=== PATIENT | male | born 1990 | race Caucasian/White ===

== ENCOUNTER 2018-11-13 18:36 | Observation (INO) ==
[2018-11-13] MEDS ORDERED: Isovue-370 500 ML BOTTLE IVP ONE (18:54)
--- NOTE | 2018-11-13 18:59 | Emergency Department Note ---
Disposition Clinical Impression: Acute electrocardiogram changes DVT (deep venous thrombosis) Qualifiers: DVT location: upper extremity Affected thrombotic vein of extremity: brachial Chronicity: acute Laterality: right Qualified Code(s): I82.621 - Acute embolism and thrombosis of deep veins of right upper extremity Chest pain Qualifiers: Chest pain type: unspecified Qualified Code(s): R07.9 - Chest pain, unspecified Disposition: Admitted As Inpatient Condition: Good Time of Disposition: 21:13 SOB HPI - General Chief Complaint: ED Shortness of Breath/Dyspnea Stated Complaint: CHECO,Left lung pain Time Seen by Provider: 11/13/18 18:46 Source: patient Mode of arrival: ambulatory Limitations: no limitations Nursing Notes Reviewed: Yes Vital Signs Reviewed: Yes - History of Present Illness Patient who is currently undergoing transitioning of gender who was on estrogen recently diagnosed with DVT of the right brachial vein arrives to the ED complaining of pleuritic chest pain that started roughly 2 hours ago. Left sided and sharp. States she could not afford his Xarelto so they did not start it. - Related Data Home Medications Medication Instructions Recorded Confirmed No Known Home Drugs 11/14/18 11/14/18 Allergies Allergy/AdvReac Type Severity Reaction Status Date / Time No Known Allergies Allergy Verified 11/10/18 10:45 All systems ED: reviewed and negative except as stated. Constitutional: Denies: fever, chills, weakness Eyes: Denies: vision change ENT ED: Denies: dysphagia Cardiovascular: Reports: chest pain, dyspnea on exertion. Denies: orthopnea, edema, syncope Respiratory: Reports: dyspnea. Denies: cough, sputum production Gastrointestinal: Denies: abdominal pain, nausea, vomiting Genitourinary: Denies: urgency, dysuria Musculoskeletal: Denies: back pain Integumentary: Denies: rash Neurological: Denies: headache Past Medical History - Past Medical History Attestation: Yes The following information was validated with the patient. Source: patient, old records reviewed Medical history: Reports: DVT, other Psychiatric history: Reports: no psych history - Social History Smoking Status: Never smoker Smokeless Tobacco Status: No Alcohol use: Reports: none Drug use: Reports: none Physical Exam - General Limitations: no limitations General appearance: alert, in no apparent distress - Head Head exam: atraumatic, normocephalic, normal inspection - Eye Eye exam: Present: normal appearance, PERRL, EOMI - ENT ENT exam: normal exam, normal oropharynx, mucous membranes moist - Neck Neck exam: Present: normal inspection, full ROM, trachea midline - Chest Chest inspection: Present: normal inspection, symmetric chest wall rise - Respiratory Respiratory exam: Present: normal lung sounds bilaterally - Cardiovascular Cardiovascular exam: Present: normal rhythm, tachycardia - Abdominal Exam Abdominal exam: Present: soft, Non-Tender. Absent: tenderness, distention, guarding, rebound, rigidity - Extremities Exam Extremities exam: Present: normal inspection, full ROM, normal capillary refill. Absent: tenderness, pedal edema - Neurological Exam Neurological exam: Present: alert, oriented X3 - Skin Skin exam: Present: warm, dry, intact, normal color Course - Reevaluation(s) Reevaluation #1: Patient's CTA of his chest demonstrates no signs of pulmonary embolus. A troponin was obtained and a BNP was also obtained. The patient was given 1 mg/kg dose of Lovenox. The patient will still likely be admitted to the hospital with concern for transition to warfarin as the patient cannot afford any other medication. Time: 20:45 Reevaluation #2: Troponin and BNP are negative. Patient does have a DVT and could not afford other anticoagulation. Patient will need to be anticoagulated. Patient will be admitted for anticoagulation purposes as well as further investigation of chest pain and EKG changes. Vital Signs Temperature 97.4 F L 11/13/18 18:42 Pulse Rate 113 11/13/18 18:42 Respiratory Rate 18 11/13/18 18:42 Blood Pressure 154/118 11/13/18 18:42 O2 Sat by Pulse Oximetry 100 11/13/18 18:42 Temperature 98.7 F 11/14/18 20:06 Pulse Rate 90 11/14/18 20:06 Respiratory Rate 18 11/14/18 20:06 Blood Pressure 136/78 11/14/18 20:06 O2 Sat by Pulse Oximetry 98 11/14/18 20:06 Oxygen Delivery Oxygen Delivery Room Air Shortness of Breath/Dyspnea - Medical Records Medical records reviewed: Yes I reviewed the patient's medical records. - Lab Data Lab results reviewed: Yes I reviewed the patient's lab results. Result diagrams: 11/14/18 06:09 11/14/18 06:09 Lab Results 11/13/18 11/13/18 11/13/18 Range/Units 18:53 18:53 18:54 WBC 8.8 (4.3-11.1) K/mcL RBC 4.89 (4.19-5.50) M/mcL Hgb 14.7 (12.9-16.9) g/dL Hct 40.9 (37.5-50.1) % MCV 83.6 (83.0-100.0) fL MCH 30.1 (28.0-33.3) pg MCHC 35.9 H (31.6-35.5) g/dL RDW 12.5 (11.5-14.5) % Plt Count 297 (140-400) K/mcL MPV 10.7 (9.4-12.4) fL Immature Gran % 0.3 (0-4) % Seg Neutrophils % 62.0 % Lymphocytes % 28.5 % Monocytes % 7.8 % Eosinophils % 1.3 % Basophils % 0.1 % Neutrophils # 5.4 (1.6-8.9) K/mcL Lymphocytes # 2.5 (0.6-4.6) K/mcL Monocytes # 0.7 (0.0-1.3) K/mcL Eosinophils # 0.1 (0.0-0.6) K/mcL Basophils # 0.0 (0.0-0.2) K/mcL PT 10.8 (9.4-12.1) Seconds INR 1.0 APTT 30.3 (26.0-36.0) Seconds Sodium 137 (136-145) mEq/L Potassium 3.6 (3.5-5.1) mEq/L Chloride 102 (98-107) mEq/L Carbon Dioxide 23 (23-29) mEq/L BUN 16 (6-20) mg/dL Creatinine 0.76 (0.70-1.30) mg/dL Est GFR ( Amer) > 60 (> 60) Est GFR (Non-Af Amer) > 60 (> 60) BUN/Creatinine Ratio 21 (6-26) Glucose 128 H (70-105) mg/dL Calculated Osmolality 287 (280-300) Calcium 10.1 (8.6-10.3) mg/dL Troponin I (< 0.04) ng/mL B-Natriuretic Peptide (Less than 100) pg/mL 11/13/18 11/13/18 Range/Units 21:02 21:02 WBC (4.3-11.1) K/mcL RBC (4.19-5.50) M/mcL Hgb (12.9-16.9) g/dL Hct (37.5-50.1) % MCV (83.0-100.0) fL MCH (28.0-33.3) pg MCHC (31.6-35.5) g/dL RDW (11.5-14.5) % Plt Count (140-400) K/mcL MPV (9.4-12.4) fL Immature Gran % (0-4) % Seg Neutrophils % % Lymphocytes % % Monocytes % % Eosinophils % % Basophils % % Neutrophils # (1.6-8.9) K/mcL Lymphocytes # (0.6-4.6) K/mcL Monocytes # (0.0-1.3) K/mcL Eosinophils # (0.0-0.6) K/mcL Basophils # (0.0-0.2) K/mcL PT (9.4-12.1) Seconds INR APTT (26.0-36.0) Seconds Sodium (136-145) mEq/L Potassium (3.5-5.1) mEq/L Chloride (98-107) mEq/L Carbon Dioxide (23-29) mEq/L BUN (6-20) mg/dL Creatinine (0.70-1.30) mg/dL Est GFR ( Amer) (> 60) Est GFR (Non-Af Amer) (> 60) BUN/Creatinine Ratio (6-26) Glucose (70-105) mg/dL Calculated Osmolality (280-300) Calcium (8.6-10.3) mg/dL Troponin I < 0.03 (< 0.04) ng/mL B-Natriuretic Peptide 17 (Less than 100) pg/mL - Radiology Data Radiology results reviewed: Yes I reviewed the patient's radiology results. Chest CTA 11/13/18 18:54 IMPRESSION: No evidence of pulmonary embolism or acute pulmonary abnormality. D/ / Walker Montano MD / Walker Montano MD Interpreting Provider: Walker Montano MD - EKG Data EKG attestation: Yes I reviewed and interpreted this EKG. EKG results narrative: Heart rate 99 beats for minute. Normal sinus rhythm. No ST elevation but marketed ST depression noted in leads 2, 3, aVF, V4, V5, V6. Attestation Statement - Attestation Attestation: Resident Attestation: I examined this patient and my medical decision making was reviewed with the Resident Physician. I agree with the documented findings, disposition and treatment plan as described except to the extent set forth below. We independently had [id number] contact with the patient.EKG reviewed with resident physician. Agree with documentation. Patient with positive DVT to the left arm diagnosed on Tuesday. Unable to obtain anticoagulation secondary to cost. Patient with sudden onset chest pain to left side pleuritic in nature and associated tachycardia. Patient has acute EKG changes. Concerning for PE. Patient is in mild respiratory distress. No significant wheezing bilaterally. Previous DVT secondary to hormone use secondary to transitioning to female. CTA was surprisingly negative. Patient will still require admission for anticoagulation given DVT and unable to obtain otherwise outpatient medications. Patient's heart rate has resolved. The patient is no longer in respiratory distress. Patient will be admitted for further management.
[2018-11-13 19:25] LABS: Basophils % 0.1 %; Eosinophils # 0.1 K/mcL (0.0-0.6); Eosinophils % 1.3 %; Hematocrit 40.9 % (37.5-50.1); Hemoglobin 14.7 g/dL (12.9-16.9); Immature Granulocytes % 0.3 % (0-4); Lymphocytes # 2.5 K/mcL (0.6-4.6); Lymphocytes % 28.5 %; Mean Corpuscular HGB Conc 35.9 g/dL (31.6-35.5); Mean Corpuscular Hemoglobin 30.1 pg (28.0-33.3); Mean Corpuscular Volume 83.6 fL (83.0-100.0); Mean Platelet Volume 10.7 fL (9.4-12.4); Monocytes # 0.7 K/mcL (0.0-1.3); Monocytes % 7.8 %; Neutrophils # 5.4 K/mcL (1.6-8.9); Platelet Count 297 K/mcL (140-400); Red Blood Count 4.89 M/mcL (4.19-5.50); Red Cell Distribution Width 12.5 % (11.5-14.5); White Blood Count 8.8 K/mcL (4.3-11.1)
[2018-11-13 19:41] LABS: Prothrombin Time 10.8 Seconds (9.4-12.1)
[2018-11-13 19:43] LABS: Activated Partial Thrombo Time 30.3 Seconds (26.0-36.0)
[2018-11-13 19:50] LABS: BUN/Creatinine Ratio 21 (6-26); Blood Urea Nitrogen 16 mg/dL (6-20); Calcium 10.1 mg/dL (8.6-10.3); Carbon Dioxide 23 mEq/L (23-29); Chloride 102 mEq/L (98-107); Glucose 128 mg/dL (70-105); Osmolality,Calculated 287 (280-300); Potassium 3.6 mEq/L (3.5-5.1); Sodium 137 mEq/L (136-145); eGFR For African Americans > 60 (> 60); eGFR For Non-African Americans > 60 (> 60)
[2018-11-13] MEDS ORDERED: *HR* Enoxaparin 120 MG/0.8 ML SYRINGE SQ STA (20:44)
[2018-11-13] MEDS ORDERED: 0.9 % Sodium Chloride 1,000 ML IVC ONE (20:51)
[2018-11-13] MEDS ORDERED: Naloxone 0.4 MG/ML INJ IVP PRN (23:21)
[2018-11-13] MEDS ORDERED: Ibuprofen 400 MG TABLET PO PRN (23:27)
[2018-11-13] MEDS ORDERED: Warfarin perPT PO PRN (23:34)
[2018-11-14] MEDS ORDERED: *HR* Warfarin 5 MG TABLET PO ONE ×2 (01:30→18:00)
--- NOTE | 2018-11-14 03:23 | Internal Med History&Physical ---
Date of Encounter: 11/14/18 Time of Encounter: 03:07 Internal Medicine - H&P: HPI Chief complaint: Chest Pain History of present illness: Mr. Healy is a 28 year old male currently undergoing transitioning of gender from male to female with estrogen therapy who was recently diagnosed with a right upper extremity DVT involving the brachial vein who presented to the ED with complaints of acute onset left-sided pleuritic chest pain which began approximately 2 hours prior to arrival. Patient describes the pain as left- sided and sharp worse with deep inspiration. Patient reports that after he was diagnosed with a blood clot in his right upper extremity last Mian here in our ED. Patient was not given a dose of Lovenox and discharged on Xarelto. 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 Patient has since then discontinued his estrogen for now. On arrival patient was hemodynamically stable though mildly tachycardic with a heart rate of 113. Initial laboratory workup was negative for troponin or BNP. An EKG was obtained which showed normal sinus rhythm with borderline right axis deviation. There was diffuse subcentimeter ST depressions in multiple leads. CTA was obtained which showed an adequate study and no findings of PE. Patient was once again given a treatment dose of Lovenox. On my assessment, patient was lying in bed in no acute distress. He states that his chest pain has since subsided. We will admit patient and began bridging to Coumadin. 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 Psychiatric history: no psych history - Past Surgical History Additional surgical history: tumor removal from left leg, birthmark on head removed - Social History Smoking Status: Never smoker Smokeless Tobacco Status: No Alcohol use: occasionally Drug use: none - Family History Mother Hx Family Cardiac Disorders: Yes Internal Medicine - H&P: Meds No Known Home Drugs 11/14/18 [History] Allergy/AdvReac Type Severity Reaction Status Date / Time No Known Allergies Allergy Verified 11/10/18 10:45 All Systems PM: A 10-system review of systems was performed and is negative for pertinent findings except as documented above in the HPI. - Constitutional Constitutional: no chills, no fever(s), no night sweats - EENT Eyes: no change in vision, no discharge, no pain, no photophobia Ears: no ear discharge, no ear pain, no tinnitus Nose, mouth and throat: no dysphagia, no nasal discharge, no neck pain, no sore throat - Cardiovascular Cardiovascular ROS IM: no chest pain, no diaphoresis, no dyspnea, no lig htheadedness, no palpitations, no syncope - Respiratory Respiratory: no cough, no dyspnea, no wheezing, no excessive phlegm production - Gastrointestinal Gastrointestinal: no abdominal pain, no diarrhea, no hematemesis, no hematochezia, no melena, no nausea, no vomiting - Musculoskeletal Musculoskeletal ROS IM: no numbness, no tingling - Integumentary Integumentary IM: no rash, no unusual bruising - Neurological Neurological ROS: no confusion, no convulsions, no focal weakness, no numbness, no tingling, no tremor(s) - Hematologic/Lymphatic Hematologic/Lymphatic: no easy bruising - Constitutional Vitals: Temp Pulse Resp BP Pulse Ox 98.5 F 81 21 129/67 98 11/14/18 00:45 11/14/18 00:45 11/14/18 00:45 11/14/18 00:45 11/13/18 22:15 Exam: General: Alert and oriented 3 lying in bed in no acute distress Skin:Normal color, no rash, no lesions. HEENT:EOM, pupils equal, round and reactive. Cardiovascular:Normal S1 & S2, no rubs, murmurs or gallops. No JVD. Pulse regular. Lungs:Normal breath sounds, no wheezes or crackles. Abdomen:Soft, non-tender, no rigidity. Extremities:No deformity, no edema or tenderness, no joint swelling or clubbing. Neurological:Normal cognition and motor skills. Pulses:Carotid and radial pulses normal +2. Rest of the physical exam is non contributory Internal Med - H&P Results - Labs CBC & Chem 7: 11/14/18 06:09 11/14/18 06:09 Labs: Short CBC 11/13/18 Range/Units 18:53 WBC 8.8 (4.3-11.1) K/mcL Hgb 14.7 (12.9-16.9) g/dL Hct 40.9 (37.5-50.1) % Plt Count 297 (140-400) K/mcL Neutrophils # 5.4 (1.6-8.9) K/mcL BMP 11/13/18 18:53 Sodium 137 Potassium 3.6 Chloride 102 Carbon Dioxide 23 BUN 16 Creatinine 0.76 Glucose 128 H Calcium 10.1 Cardiac Enzymes 11/13/18 Range/Units 21:02 Troponin I < 0.03 (< 0.04) ng/mL - Impressions ITS Impressions Chest CTA 11/13/18 18:54 IMPRESSION: No evidence of pulmonary embolism or acute pulmonary abnormality. D/ / Walker Montano MD / Walker Montano MD Interpreting Provider: Walker Montano MD - Assessment and Plan (1) Chest pain Current Visit: Yes Status: Acute Assessment and plan: Patient reporting pleuritic chest pain in the setting of recent history of right brachial vein DVT diagnosed last Tuesday. Patient was given a one-time dose of Lovenox at the time and discharged on Xarelto. Patient was unable to afford the medication and has not been on anticoagulation since. He is currently on estrogen therapy for transition from male to female. Estrogen has since been discontinued. EKG shows subtle [address] depressions. CTA negative for PE. Patient given Lovenox. -We will trend troponin -Telemetry -Pain management as needed -We will obtain echocardiogram for evaluation of any evidence of heart strain -We will continue Lovenox and bridge to Coumadin Qualifiers: Chest pain type: unspecified Qualified Code(s): R07.9 - Chest pain, unspecified (2) DVT (deep venous thrombosis) Current Visit: Yes Status: Acute Assessment and plan: See above Qualifiers: DVT location: upper extremity Affected thrombotic vein of extremity: brachial Chronicity: acute Laterality: right Qualified Code(s): I82.621 - Acute embolism and thrombosis of deep veins of right upper extremity (3) [id number] transgender person Current Visit: Yes Status: Acute Assessment and plan: Estrogen therapy temporarily withheld - Time Spent With Patient Total time spent is greater than 50% in coordination of care (as documented) at patient's floor/unit and/or counseling patient:
[2018-11-14 06:45] LABS: Hematocrit 38.7 % (37.5-50.1); Hemoglobin 13.2 g/dL (12.9-16.9); Mean Corpuscular HGB Conc 34.1 g/dL (31.6-35.5); Mean Corpuscular Hemoglobin 29.9 pg (28.0-33.3); Mean Corpuscular Volume 87.6 fL (83.0-100.0); Mean Platelet Volume 10.6 fL (9.4-12.4); Platelet Count 233 K/mcL (140-400); Red Blood Count 4.42 M/mcL (4.19-5.50); Red Cell Distribution Width 12.6 % (11.5-14.5); White Blood Count 6.8 K/mcL (4.3-11.1)
[2018-11-14 06:54] LABS: Prothrombin Time 11.2 Seconds (9.4-12.1)
[2018-11-14 07:10] LABS: BUN/Creatinine Ratio 25 (6-26); Blood Urea Nitrogen 16 mg/dL (6-20); Calcium 9.1 mg/dL (8.6-10.3); Carbon Dioxide 22 mEq/L (23-29); Chloride 107 mEq/L (98-107); Glucose 96 mg/dL (70-105); Osmolality,Calculated 283 (280-300); Potassium 3.9 mEq/L (3.5-5.1); Sodium 136 mEq/L (136-145); Troponin I < 0.03 ng/mL (< 0.04); eGFR For African Americans > 60 (> 60); eGFR For Non-African Americans > 60 (> 60)
[2018-11-14] MEDS: *HR* Enoxaparin 120 MG/0.8 ML SYRINGE SQ SCH ×2 (10:06→21:00)
--- NOTE | 2018-11-14 10:28 | Event Note ---
Date of Encounter: 11/14/18 Time of Encounter: 08:00 patient was seen and examined at bedside. family at bedside all question answered. she was not able to afford OAC that she was prescribed by the ED physician. she currently reports that her pain grigsby improved however she till feels left sided chest pain on deep breathing. denies palpitations or chest pain on exertion. grigsby stopped her use of estrogen after she was diagnosed with DVT. understands the risks and complications of hormone therapy and currently has it on hold and will follow up with her physician. understands that she will need to have close follow up of INR as OP. VS reviewed obese, speaks in full sentences. Gynecomastia, decreased breath sounds secondary to body habitus, clear to auscultation no wheezing or crackles Distant heart sounds secondary to body habitus Regular rate and rhythm, S1 and S2, no murmurs heard Abdomen is obese, bowel sounds positive Moving all extremities, strength is 5 out of 5 in all extremities Alert and oriented 3, no focal deficit CTA chest :IMPRESSION: No evidence of pulmonary embolism or acute pulmonary abnormality. Assessment and plan Chest pain and EKG changes ( s1Q3T3, ST-T changes in inferolateral leads, ?repolarization abnormality) will rule out ACS Recent right upper extremity DVT Was on hormone therapy Obese Troponin negative 2 We will send lipid panel, TSH and A1c in a.m. Echocardiogram PE was ruled out by CT angiogram of the chest Continue with Lovenox and Coumadin and bridge Pharmacist dose Coumadin Follow INR Consider cardiology consult was counseled on diet and nutrition
[2018-11-14 10:50] LABS: C-Reactive Protein < 5 mg/L (Less than 10)
[2018-11-15 00:46] LABS: Hematocrit 40.2 % (37.5-50.1); Mean Corpuscular HGB Conc 34.8 g/dL (31.6-35.5); Mean Corpuscular Hemoglobin 29.7 pg (28.0-33.3); Mean Corpuscular Volume 85.4 fL (83.0-100.0); Mean Platelet Volume 10.4 fL (9.4-12.4); Platelet Count 276 K/mcL (140-400); Red Blood Count 4.71 M/mcL (4.19-5.50); Red Cell Distribution Width 12.5 % (11.5-14.5); White Blood Count 8.3 K/mcL (4.3-11.1)
[2018-11-15 00:56] LABS: Prothrombin Time 10.7 Seconds (9.4-12.1)
[2018-11-15 01:05] LABS: BUN/Creatinine Ratio 25 (6-26); Blood Urea Nitrogen 19 mg/dL (6-20); Calcium 9.5 mg/dL (8.6-10.3); Carbon Dioxide 24 mEq/L (23-29); Chloride 105 mEq/L (98-107); Glucose 117 mg/dL (70-105); Osmolality,Calculated 285 (280-300); Potassium 3.7 mEq/L (3.5-5.1); Sodium 136 mEq/L (136-145); eGFR For African Americans > 60 (> 60); eGFR For Non-African Americans > 60 (> 60)
[2018-11-15] MEDS: *HR* Enoxaparin 120 MG/0.8 ML SYRINGE SQ SCH ×2 (09:26→20:50)
--- NOTE | 2018-11-15 11:35 | Internal Med Progress Note ---
Hospitalist Progress Note - Encounter Date of Encounter: 11/15/18 Time of Encounter: 11:34 - Subjective Interval History: Patient seen and examined this morning at bedside. No acute overnight events. Denies any chest pain shortness of breath , abdominal pain bowel or bladder complaints. Denies any new complaints. - Exam Vitals: Temp Pulse Resp BP Pulse Ox 97.5 F L 54 15 121/70 98 11/15/18 07:25 11/15/18 07:25 11/15/18 07:25 11/15/18 07:25 11/15/18 03:30 Exam: General: In no acute distress. Respiratory exam: CTAB. no accessory muscle use, rales, rhonchi, wheezes Cardiovascular exam: RRR, +S1, +S2. no murmur, gallop, rubs. GI/Abdominal exam: Non-tender, Non-distended, normal bowel sounds, soft, no peritoneal signs. Extremities exam: no pedal edema, pulses palpable in b/l lower extremities. no calf tenderness Neurological exam: CN II-XII intact, AO X3, no focal deficits. Skin exam: No skin rash - Assessment and Plan (1) DVT (deep venous thrombosis) Current Visit: Yes Status: Acute (2) Chest pain Current Visit: Yes Status: Acute (3) [id number] transgender person Current Visit: Yes Status: Acute - Summary of Assessment and Plan Summary of Assessment and Plan: Assessment Chest pain and EKG changes Recent right upper extremity DVT On hormone therapy for Male to female transition Obese Plan - Currently without chest pain, Troponin negative 2. However does have ST derpession in inferior leads. NO previous EKG for comparison. Will repeat EKG. Will consider stress test depending on results. - no lipid panel, TSH and A1c was ordered. - Echocardiogram poor study but EF 60%, Normal LV and RV function no pul HTN. Not all wall motion visualized - CTA chest negative for PE - c/w Lovenox and Coumadin and bridge. Pharmacist dose Coumadin - Time Spent with Patient Total time spent is greater than 50% in coordination of care (as documented) at patient's floor/unit and/or counseling patient: Internal Medicine: Result - Labs CBC & Chem 7: 11/15/18 00:23 11/15/18 00:23 Labs: Short CBC 11/15/18 Range/Units 00:23 WBC 8.3 (4.3-11.1) K/mcL Hgb 14.0 (12.9-16.9) g/dL Hct 40.2 (37.5-50.1) % Plt Count 276 (140-400) K/mcL BMP 11/15/18 00:23 Sodium 136 Potassium 3.7 Chloride 105 Carbon Dioxide 24 BUN 19 Creatinine 0.77 Glucose 117 H Calcium 9.5 - ABG Interpretation ABG results: PT/INR, D-dimer PT 10.7 Seconds (9.4-12.1) 11/15/18 00:23 - Impressions Impressions Echocardiogram 11/14/18 09:20 Impressions: LVEF 60%. Normal LV chamber size and wall thickness. Normal left ventricular diastolic function. Normal right ventricular structure and function. No evidence of pulmonary hypertension. No significant valvular dysfunction Left Ventricular Wall Motion: Rest Echo Findings The apical lateral, mid anterior septal and basal anterior septal west were not visualized. All other wall segments showed normal motion. Findings: Study Quality * Technically sub-optimal due to poor echocardiographic windows. ECG Findings * Normal sinus rhythm. Left Ventricle * LVEF 60%. * Normal LV chamber size and wall thickness. * Normal left ventricular diastolic function. Right Ventricle * Normal right ventricular structure and function. Left Atrium * Normal left atrial size. Right Atrium * Normal right atrial size. Aortic Valve * Aortic valve not well visualized. * No aortic regurgitation. * No aortic stenosis. Mitral Valve * Normal mitral valve structure. * No mitral regurgitation. * No mitral stenosis. Tricuspid Valve * No tricuspid regurgitation. * No tricuspid stenosis. * No evidence of pulmonary hypertension. * Normal tricuspid valve structure. Pulmonic Valve * Trace pulmonic regurgitation. Aorta * Normally sized aortic root. Pericardium * The pericardium appears normal. IVC * Normal IVC dimensions and inspiratory collapse. Pulmonary Artery * Pulmonary artery not well visualized. Consult Discharge Plan - Plan Referrals: NONE,PCP [Primary Care Provider] - (1) DVT (deep venous thrombosis) Qualifiers: DVT location: upper extremity Affected thrombotic vein of extremity: brachial Chronicity: acute Laterality: right Qualified Code(s): I82.621 - Acute embolism and thrombosis of deep veins of right upper extremity (2) Chest pain Qualifiers: Chest pain type: unspecified Qualified Code(s): R07.9 - Chest pain, unspecified
--- NOTE | 2018-11-15 15:22 | Electrocardiograph Report ---
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
[2018-11-15] MEDS ORDERED: *HR* Warfarin 7.5 MG TABLET PO ONE (18:00)
[2018-11-16 01:20] LABS: Chol/HDL Ratio 4.9 (0-4.9); INR 1.1; Prothrombin Time 12.1 Seconds (9.4-12.1)
[2018-11-16 01:24] LABS: Estimated Average Glucose 111 mg/dl; Hemoglobin A1C 5.5 %
[2018-11-16] MEDS: *HR* Enoxaparin 120 MG/0.8 ML SYRINGE SQ SCH ×2 (09:42→20:52)
--- NOTE | 2018-11-16 11:57 | Internal Med Progress Note ---
Hospitalist Progress Note - Encounter Date of Encounter: 11/16/18 Time of Encounter: 11:57 - Subjective Interval History: Is not seen and examined this morning at bedside. No acute overnight events. Patient denies any chest pain difficulty breathing abdominal pain nausea vomiting or diarrhea. Denies any new complaints. - Exam Vitals: Temp Pulse Resp BP Pulse Ox 98.2 F 67 14 126/73 100 11/16/18 10:37 11/16/18 10:37 11/16/18 10:37 11/16/18 10:37 11/16/18 10:37 Exam: General: In no acute distress. Respiratory exam: CTAB. no accessory muscle use, rales, rhonchi, wheezes Cardiovascular exam: RRR, +S1, +S2. no murmur, gallop, rubs. GI/Abdominal exam: Non-tender, Non-distended, normal bowel sounds, soft, no peritoneal signs. Extremities exam: no pedal edema, pulses palpable in b/l lower extremities. no calf tenderness Neurological exam: CN II-XII intact, AO X3, no focal deficits. Skin exam: No skin rash - Assessment and Plan (1) DVT (deep venous thrombosis) Current Visit: Yes Status: Acute (2) Chest pain Current Visit: Yes Status: Acute (3) [id number] transgender person Current Visit: Yes Status: Acute - Summary of Assessment and Plan Summary of Assessment and Plan: Assessment Chest pain Abnormal EKG Hyperlipidemia Recent right upper extremity DVT On hormone therapy for Male to female transition Obese Plan - Currently without chest pain, Troponin negative 2. However does have ST derpession in inferior leads. Repeat EKG improved. NO previous EKG for comparison. Echocardiogram poor study but EF 60%, Normal LV and RV function no pul HTN. Not all wall motion visualized.Will get consider stress test tomorrow. - Lipid panel with elevated TG, LDL and VLDL. Discussed lifestyle changes. Will need outpatient follow up in few months for repeat and consider statin if not controlled. - CTA chest negative for PE - c/w Lovenox and Coumadin and bridge given risk factor of hormonal therapy. Pharmacist dose Coumadin. Was not able to afford NOAC. - Time Spent with Patient Total time spent is greater than 50% in coordination of care (as documented) at patient's floor/unit and/or counseling patient: Internal Medicine: Result - Labs CBC & Chem 7: 06/12/19 00:23 11/15/18 00:23 - ABG Interpretation ABG results: PT/INR, D-dimer PT 12.1 Seconds (9.4-12.1) 11/16/18 00:11 Consult Discharge Plan - Plan Referrals: NONE,PCP [Primary Care Provider] - (1) DVT (deep venous thrombosis) Qualifiers: DVT location: upper extremity Affected thrombotic vein of extremity: brachial Chronicity: acute Laterality: right Qualified Code(s): I82.621 - Acute embolism and thrombosis of deep veins of right upper extremity (2) Chest pain Qualifiers: Chest pain type: unspecified Qualified Code(s): R07.9 - Chest pain, unspecified
--- NOTE | 2018-11-16 12:56 | Electrocardiograph Report ---
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
[2018-11-16] MEDS ORDERED: *HR* Warfarin 7.5 MG TABLET PO SCH (18:00)
[2018-11-17 05:47] LABS: INR 1.2; Prothrombin Time 13.4 Seconds (9.4-12.1)
[2018-11-17] MEDS: *HR* Enoxaparin 120 MG/0.8 ML SYRINGE SQ SCH (07:48)
--- NOTE | 2018-11-17 08:46 | Internal Med Progress Note ---
Hospitalist Progress Note - Encounter Date of Encounter: 11/17/18 Time of Encounter: 08:44 - Subjective Interval History: Patient seen and examined this morning at bedside. No acute overnight events. Denies any chest pain or difficulty breathing. Denies new complaint. No fever or chills nausea vomiting or diarrhea. - Exam Vitals: Temp Pulse Resp BP Pulse Ox 97.5 F L 62 16 113/73 97 11/17/18 07:25 11/17/18 07:25 11/17/18 07:25 11/17/18 07:25 11/17/18 07:25 Exam: General: In no acute distress. Respiratory exam: CTAB. no accessory muscle use, rales, rhonchi, wheezes Cardiovascular exam: RRR, +S1, +S2. no murmur, gallop, rubs. GI/Abdominal exam: Non-tender, Non-distended, normal bowel sounds, soft, no peritoneal signs. Extremities exam: no pedal edema, pulses palpable in b/l lower extremities. no calf tenderness Neurological exam: CN II-XII intact, AO X3, no focal deficits. Skin exam: No skin rash - Assessment and Plan (1) DVT (deep venous thrombosis) Current Visit: Yes Status: Acute (2) Chest pain Current Visit: Yes Status: Acute (3) Raex-ct-tiijte transgender person Current Visit: Yes Status: Acute - Summary of Assessment and Plan Summary of Assessment and Plan: Assessment Chest pain Abnormal EKG Hyperlipidemia Recent right upper extremity DVT On hormone therapy for Male to female transition Obese Plan - Currently without chest pain, Troponin negative 2. However does have ST derpession in inferior leads. Repeat EKG improved but ST depression in III. NO previous EKG for comparison. Echocardiogram poor study but EF 60%, Normal LV and RV function no pul HTN. Not all wall motion visualized. Will get exercise stress test today. - Lipid panel with elevated TG, LDL and VLDL. Discussed lifestyle changes. Will need outpatient follow up in few months for repeat and consider statin if not controlled. - CTA chest negative for PE - c/w Lovenox and Coumadin and bridge given risk factor of hormonal therapy and recent DVT. Pharmacist dose Coumadin. Was not able to afford NOAC. - Time Spent with Patient Total time spent is greater than 50% in coordination of care (as documented) at patient's floor/unit and/or counseling patient: Internal Medicine: Result - Labs CBC & Chem 7: 11/15/18 00:23 11/15/18 00:23 - ABG Interpretation ABG results: PT/INR, D-dimer PT 13.4 Seconds (9.4-12.1) H 11/17/18 05:11 Consult Discharge Plan - Plan Referrals: NONE,PCP [Primary Care Provider] - (1) DVT (deep venous thrombosis) Qualifiers: DVT location: upper extremity Affected thrombotic vein of extremity: brachial Chronicity: acute Laterality: right Qualified Code(s): I82.621 - Acute embolism and thrombosis of deep veins of right upper extremity (2) Chest pain Qualifiers: Chest pain type: unspecified Qualified Code(s): R07.9 - Chest pain, unspecified
[2018-11-17 15:42] VITALS: BP 129/78
--- NOTE | 2018-11-17 16:22 | Discharge Summary ---
- NOTES TO OUTPATIENT PROVIDER Notes to Outpatient Provider: Patient will need to follow up with Coumadin clinic for INR monitoring until therapeutic with Lovenox bridging. Stress test was negative. Has abnormal lipid panel. Will need follow-up in 3 - 6 months after lifestyle changes. Orders not resulted at time of discharge: Pending orders 11/18/18 04:00 INR/PT [Prothrombin Time INR] [COAG] AM 0400 11/19/18 04:00 INR/PT [Prothrombin Time INR] [COAG] AM 0400 11/20/18 04:00 INR/PT [Prothrombin Time INR] [COAG] AM 04011/21/18 04:00 INR/PT [Prothrombin Time INR] [COAG] AM 040 Date of Encounter: 11/17/18 Time of Encounter: 16:19 - Discharge Diagnosis (1) DVT (deep venous thrombosis) Priority: Primary Status: Acute Qualifiers: DVT location: upper extremity Affected thrombotic vein of extremity: brachial Chronicity: acute Laterality: right Qualified Code(s): I82.621 - Acute embolism and thrombosis of deep veins of right upper extremity (2) Chest pain Priority: Primary Status: Acute Qualifiers: Chest pain type: unspecified Qualified Code(s): R07.9 - Chest pain, unspecified (3) Dudp-rv-adcykj transgender person Priority: Secondary Status: Acute (4) Abnormal EKG Priority: Secondary Status: Acute (5) HLD (hyperlipidemia) Priority: Secondary Status: Acute Qualifiers: Hyperlipidemia type: mixed hyperlipidemia Qualified Code(s): E78.2 - Mixed hyperlipidemia (6) Obesity (BMI 30.0-34.9) Priority: Secondary Status: Acute Hospital course: Mr. Healy is a 28 year old male who is currently undergoing transitioning fro m male to female with hormonal therapy with estrogen recently diagnosed with right upper extremity DVT and brachial vein came with complain of chest pain left-sided. Patient was discharged after the recent diagnosis of DVT with some mild cold which he could not afford. Patient was admitted for further evaluation and management. CTA was negative for PE or acute abnormality. Patient had negative troponin however EKG had finding of ST depression and T- wave inversion in the inferior leads involving 23 and aVF which improved to only lead 3 the next day. Patient was chest pain-free since admission. Patient was started on Lovenox bridging with Coumadin. Patient underwent exercise EKG stress test which was negative for ischemia. Patient had Lovenox arranged outpatient through [facility] and was comfortable to take subcutaneously. Patient is otherwise stable to be discharged home to continue Lovenox and Coumadin bridging until INR is therapeutic between 2-3. Patient has Coumadin clinic appointment follow-up arranged. Patient to continue 7.5 mg of Coumadin along with weightbase therapeutic Lovenox. Patient will need to follow with PCP in 1-2 weeks. Patient does have abnormal lipid panel and discuss lifestyle changes. May need to start statin if not able to manage with lifestyle changes in 3-6 months. I asked him to use Tylenol for any pain given he is on blood thinner. Discharge discussed with: patient, family, nurse, social work, field technical support consultant - Time Spent with Patient Total time spent providing and/or coordinating discharge services: Time spent: Greater than 30 minutes (40) - Discharge Medications Prescriptions: New Enoxaparin [Lovenox] 115 mg SQ Q12H #0 syringe Warfarin Sodium 7.5 mg PO DAILY 7 Days #7 tablet Home Medications: Enoxaparin [Lovenox] 115 mg SQ Q12H #0 syringe 11/17/18 [Rx] Warfarin Sodium 7.5 mg PO DAILY 7 Days #7 tablet 11/17/18 [Rx] Allergies/Adverse Reactions: Allergy/AdvReac Type Severity Reaction Status Date / Time No Known Allergies Allergy Verified 11/10/18 10:45 Date of admission: 11/13/18 23:49 Primary care physician: PCP NONE Discharging clinician: Barbara Rhodes - Constitutional Vitals: Temp Pulse Resp BP Pulse Ox 98.2 F 95 16 129/78 98 11/17/18 15:29 11/17/18 15:29 11/17/18 15:29 11/17/18 15:29 11/17/18 15:29 Exam: General: In no acute distress. Respiratory exam: CTAB. no accessory muscle use, rales, rhonchi, wheezes Cardiovascular exam: RRR, +S1, +S2. no murmur, gallop, rubs. GI/Abdominal exam: Non-tender, Non-distended, normal bowel sounds, soft, no pe ritoneal signs. Extremities exam: no pedal edema, pulses palpable in b/l lower extremities. no calf tenderness Neurological exam: CN II-XII intact, AO X3, no focal deficits. Skin exam: No skin rash - Patient Status Disposition: Home, Self-Care Condition: Good - Discharge Instructions Instructions: Chest Pain (DC), Deep Venous Thrombosis (DC) Follow Up With: Coumadin Clinic [Other] - 11/21/18 3:00 pm Ghassan Rajan DO [Resident] - 11/21/18 9:00 am () - Diet and Activity Activity: increase activity as tolerated
[2018-11-17] MEDS ORDERED: *HR* Warfarin 7.5 MG TABLET PO ONE (18:00)
--- NOTE | 2018-11-20 18:04 | Electrocardiograph Report ---
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
== END 2018-11-17 17:06 | disposition home or self-care (01) ==
LOC: CDU 18:36 → EMEROOARM 18:36 → SUATTDRO 23:49 → CDU 11-14 00:38 → 3BNU 11-16 16:48
PROVIDERS: ADMIT Internal Medicine; ATTEND Internal Medicine